=== PATIENT | female | born 1975 | race Caucasian/White ===

== ENCOUNTER 2018-08-07 16:07 | Emergency (ER) | payer OTHER, SELFPAY ==
[2018-08-07 16:31] VITALS: BP 98/73; PULSE 75; RESP 16; TEMP 36.7; O2SAT 100
--- NOTE | 2018-08-07 18:24 | W.ED.GENAD ---
Discharge Plan Disposition Patient Disposition: HOME Discharge Details Chief Complaint: AnimalBite Clinical Impression: Rabies, need for prophylactic vaccination against, Exposure to bat without known bite Primary Care Provider: Tati Dotson ED Provider: Fernie Khanna Home Meds and New Rx's Prescriptions: Continue multivitamin 1 EACH tablet 1 ea PO DAILY RF: 0 levonorgestrel [Mirena] 1 EACH intrauterine device 1 ea Intrauterine ONCE Qty: 1 RF: 0 triamcinolone acetonide 15 GM cream 15 gm Topical BID Qty: 1 RF: 12 fluticasone [Flonase Allergy Relief] 9.9 ML spray,suspension 2 spray NS DAILY Qty: 9.9 RF: 12 lorazepam 1 MG tablet 0.5 - 1 mg PO HS PRNQty: 30 RF: 3 levothyroxine [Synthroid] 125 MCG tablet 125 mcg PO DAILY Qty: 90 RF: 3 Discharge Instructions Instructions: Rabies Vaccine (ED) Additional Instructions: You need to have additional vaccination performed on 08/10/18, 08/14/18, and 08/21/18. Please set up with your primary care doctor or return to the ER. Please contact your primary care physician to arrange follow-up. Return to the ER for any worsening or new concerning symptoms. Referrals: Tati Dotson, WILLOW [Primary Care Provider] - Discharge Data Discharge Date/Time-TO BE ENTERED AT DEPARTURE: 08/07/18 20:21 Medical Decision Making 43-year-old female here with concern that there was a bat in her house while she was sleeping. Requesting rabies prophylaxis. Risk benefit of rabies prophylaxis was discussed with the patient. Patient provided informed consent to treat. HPI General Mode of arrival: ambulatory. Date/Time Provider Initiated Documentation: 08/07/18 18:09. Limitations to Documentation: no limitations. Information obtained by: patient and family. HPI Narrative: 43-year-old female presents with concern for exposure to rabies. Patient notes that she found a bat in her house. No known scratch or bite. Bat was in her living space. Requesting rabies vaccination. Related Data Home Medications Medication Instructions Recorded Confirmed levonorgestrel [Mirena] 1 ea INTRAUTERINE ONCE #1 implant 07/29/16 08/07/18 multivitamin 1 ea PO DAILY 07/29/16 08/07/18 triamcinolone acetonide 15 gm TOPICAL BID #1 script 09/18/16 08/07/18 fluticasone [Flonase Allergy 2 spray NS DAILY #9.9 ml 08/12/17 08/07/18 Relief] lorazepam 0.5 - 1 mg PO HS PRN #30 tab-cap 08/12/17 08/07/18 levothyroxine [Synthroid] 125 mcg PO DAILY #90 tab-cap 09/16/17 08/07/18 Previous Rx's Medication Instructions Recorded fluticasone [Flonase Allergy 2 spray NS DAILY #9.9 ml 08/12/17 Relief] levothyroxine [Synthroid] 125 mcg PO DAILY #90 tab-cap 09/16/17 Allergies Allergy/AdvReac Type Severity Reaction Status Date / Time No Known Allergies Allergy Unverified 08/07/18 16:36 General Stated Complaint: AnimalBite JEANETTE: 5 Review of Systems Integumentary/Breasts Reports as per HPI PFSH Family History Mother No problems noted. Father Alcohol abuse Hyperlipidemia Medical History Anemia Common migraine Depression History of Graves' disease Hyperlipidemia Lichen sclerosus Social History Smoking/Tobacco Use Status: Never Exam Const General: cooperative and no acute distress Orientation: alert and awake Course Vital Signs Temperature 36.7 C 08/07/18 16:31 Pulse 75 08/07/18 16:31 Respiratory Rate 16 08/07/18 16:31 Blood Pressure 98/73 L 08/07/18 16:31 Pulse Oximetry 100 08/07/18 16:31 Temperature 36.7 C 08/07/18 16:31 Temperature Source Skin 08/07/18 16:31 Pulse 75 08/07/18 16:31 Respiratory Rate 16 08/07/18 16:31 Respiratory Effort Non-Labored 08/07/18 16:44 Blood Pressure 98/73 L 08/07/18 16:31 Pulse Oximetry 100 08/07/18 16:31 Pain Level 1 08/07/18 16:31
--- NOTE | 2018-08-20 06:35 | ED.GENADUL_ITS ---
Discharge Plan Disposition Patient Disposition: HOME Discharge Details Chief Complaint: AnimalBite Clinical Impression: Rabies, need for prophylactic vaccination against, Exposure to bat without known bite Primary Care Provider: Tati Dotson ED Provider: Fernie Khanna Home Meds and New Rx's Prescriptions: Continue multivitamin 1 EACH tablet 1 ea PO DAILY RF: 0 levonorgestrel [Mirena] 1 EACH intrauterine device 1 ea Intrauterine ONCE Qty: 1 RF: 0 triamcinolone acetonide 15 GM cream 15 gm Topical BID Qty: 1 RF: 12 fluticasone [Flonase Allergy Relief] 9.9 ML spray,suspension 2 spray NS DAILY Qty: 9.9 RF: 12 lorazepam 1 MG tablet 0.5 - 1 mg PO HS PRNQty: 30 RF: 3 levothyroxine [Synthroid] 125 MCG tablet 125 mcg PO DAILY Qty: 90 RF: 3 Discharge Instructions Instructions: Rabies Vaccine (ED) Additional Instructions: You need to have additional vaccination performed on 08/10/18, 08/14/18, and 08/21. Please set up with your primary care doctor or return to the ER. Please contact your primary care physician to arrange follow-up. Return to the ER for any worsening or new concerning symptoms. Referrals: Tati Dotson, WILLOW [Primary Care Provider] - Discharge Data Discharge Date/Time-TO BE ENTERED AT DEPARTURE: 08/07/18 20:21 Medical Decision Making 43-year-old female here with concern that there was a bat in her house while she was sleeping. Requesting rabies prophylaxis. Risk benefit of rabies prophylaxis was discussed with the patient. Patient provided informed consent to treat. HPI General Mode of arrival: ambulatory . Date/Time Provider Initiated Documentation: 08/07/18 18:09 . Limitations to Documentation: no limitations . Information obtained by: patient and family . HPI Narrative: 43-year-old female presents with concern for exposure to rabies. Patient notes that she found a bat in her house. No known scratch or bite. Bat was in her living space. Requesting rabies vaccination. Related Data Home Medications Medication Instructions Recorded Confirmed levonorgestrel [Mirena] 1 ea INTRAUTERINE ONCE #1 implant 07/29/16 08/07/18 multivitamin 1 ea PO DAILY 07/29/16 08/07/18 triamcinolone acetonide 15 gm TOPICAL BID #1 script 09/18/16 08/07/18 fluticasone [Flonase Allergy 2 spray NS DAILY #9.9 ml 08/12/17 08/07/18 Relief] lorazepam 0.5 - 1 mg PO HS PRN #30 tab-cap 08/12/17 08/07/18 levothyroxine [Synthroid] 125 mcg PO DAILY #90 tab-cap 09/16/17 08/07/18 Previous Rx's Medication Instructions Recorded fluticasone [Flonase Allergy 2 spray NS DAILY #9.9 ml 08/12/17 Relief] levothyroxine [Synthroid] 125 mcg PO DAILY #90 tab-cap 09/16/17 Allergies Allergy/AdvReac Type Severity Reaction Status Date / Time No Known Allergies Allergy Unverified 08/07/18 16:36 General Stated Complaint: AnimalBite JEANETTE: 5 Review of Systems Integumentary/Breasts Reports as per HPI PFSH Family History Mother No problems noted. Father Alcohol abuse Hyperlipidemia Medical History Anemia Common migraine Depression History of Graves' disease Hyperlipidemia Lichen sclerosus Social History Smoking/Tobacco Use Status: Never Exam Const General: cooperative and no acute distress Orientation: alert and awake Course Vital Signs Temperature 36.7 C 08/07/18 16:31 Pulse 75 08/07/18 16:31 Respiratory Rate 16 08/07/18 16:31 Blood Pressure 98/73 L 08/07/18 16:31 Pulse Oximetry 100 08/07/18 16:31 Temperature 36.7 C 08/07/18 16:31 Temperature Source Skin 08/07/18 16:31 Pulse 75 08/07/18 16:31 Respiratory Rate 16 08/07/18 16:31 Respiratory Effort Non-Labored 08/07/18 16:44 Blood Pressure 98/73 L 08/07/18 16:31 Pulse Oximetry 100 08/07/18 16:31 Pain Level 1 08/07/18 16:31
== END 2018-08-07 20:21 | disposition home or self-care (01) ==
PROVIDERS: Emergency Provider Student in an Organized Health Care Education/Training Program; PCP Nurse Practitioner
DX: Z20.3 Contact with and (suspected) exposure to rabies (principal); Z29.14 Encounter for prophylactic rabies immune globulin; W53.89XA Other contact with other rodent, initial encounter
CPT/HCPCS: 90471; 99284; 90675; 99282

== ENCOUNTER 2018-08-21 13:46 | Emergency (ER) | payer OTHER, SELFPAY ==
[2018-08-21 13:52] VITALS: BP 149/98; PULSE 66; RESP 16; TEMP 36.7; O2SAT 97
--- NOTE | 2018-08-21 14:14 | W.ED.GENAD ---
Discharge Plan Disposition Patient Disposition: HOME Condition: Good Discharge Details Chief Complaint: Recheck Clinical Impression: Need for rabies vaccination Primary Care Provider: Tati Dotson ED Provider: Agustina Do Home Meds and New Rx's Prescriptions: Continue multivitamin 1 EACH tablet 1 ea PO DAILY RF: 0 levonorgestrel [Mirena] 1 EACH intrauterine device 1 ea Intrauterine ONCE Qty: 1 RF: 0 triamcinolone acetonide 15 GM cream 15 gm Topical BID Qty: 1 RF: 12 fluticasone [Flonase Allergy Relief] 9.9 ML spray,suspension 2 spray NS DAILY Qty: 9.9 RF: 12 lorazepam 1 MG tablet 0.5 - 1 mg PO HS PRNQty: 30 RF: 3 levothyroxine [Synthroid] 125 MCG tablet 125 mcg PO DAILY Qty: 90 RF: 3 Discharge Instructions Instructions: Rabies Vaccine (ED) Additional Instructions: If you develop any headache, fever, muscle spasms, confusion or adverse reaction to the injection, please seek care urgently once again. Otherwise follow-up with primary care Referrals: Tati Dotson, WILLOW [Primary Care Provider] - Medical Decision Making Patient is a 43-year-old female presenting today with chief concern of rabies prophylaxis. Patient was began 2 weeks ago on rabies prophylaxis after discussion of that. She was in [place] last week at which time she received days 3 and 7 vaccine. Presents today for last in the series on day #14. States he has been tolerating the vaccines well. No nausea, vomiting, rash, headache. Reports she is otherwise feeling well. States that she has some mild aching initially after the vaccines but otherwise no symptoms. Patient was unable to have this administered elsewhere so came to emergency department for her last series. We will administer the last vaccine. LMP 1 week ago, patient does not be placed. We discussed new/worsening symptoms when to seek care urgently once again. Advise follow-up with primary care as needed. All of her questions and concerns were addressed and she is in agreement with this plan. HPI General Mode of arrival: ambulatory. Date/Time Provider Initiated Documentation: 08/21/18 13:53. Limitations to Documentation: no limitations. Information obtained by: patient. History of Present Illness 43 year old F presents to the emergency department with the chief complaint of need for last rabies vaccine in series, Patient started experiencing this week(s) (2) Patient notes no other symptoms.; denies chest pain, cough, fever/chills, headaches, nausea/vomiting, rash and shortness of breath. Patient did receive the following treatments prior to arrival, other (has had initial vaccination at 0,3,7 days) Related Data Home Medications Medication Instructions Recorded Confirmed levonorgestrel [Mirena] 1 ea INTRAUTERINE ONCE #1 implant 07/29/16 08/07/18 multivitamin 1 ea PO DAILY 07/29/16 08/07/18 triamcinolone acetonide 15 gm TOPICAL BID #1 script 09/18/16 08/07/18 fluticasone [Flonase Allergy 2 spray NS DAILY #9.9 ml 08/12/17 08/07/18 Relief] lorazepam 0.5 - 1 mg PO HS PRN #30 tab-cap 08/12/17 08/07/18 levothyroxine [Synthroid] 125 mcg PO DAILY #90 tab-cap 09/16/17 08/07/18 Previous Rx's Medication Instructions Recorded fluticasone [Flonase Allergy 2 spray NS DAILY #9.9 ml 08/12/17 Relief] levothyroxine [Synthroid] 125 mcg PO DAILY #90 tab-cap 09/16/17 Allergies Allergy/AdvReac Type Severity Reaction Status Date / Time No Known Allergies Allergy Unverified 08/07/18 16:36 General Stated Complaint: Recheck JEANETTE: 5 Review of Systems Constitutional Reports as per HPI, Denies body ache(s), Denies chills, Denies fever(s), Denies headache(s) and Denies lethargy ENT Denies headache(s) Cardiovascular Denies chest pain and Denies dyspnea Respiratory Denies cough and Denies dyspnea Gastrointestinal Denies nausea and Denies vomiting Integumentary/Breasts Denies erythema and Denies rash Neurologic Denies headache(s) PFSH Family History Mother No problems noted. Father Alcohol abuse Hyperlipidemia Medical History Anemia Common migraine Depression History of Graves' disease Hyperlipidemia Lichen sclerosus Social History Smoking/Tobacco Use Status: Never Exam Const General: cooperative, healthy appearing, comfortable, no acute distress and well developed Nutritional Appearance: average body habitus and well nourished Orientation: alert and awake Eyes General: appearance normal, both eyes and all related structures Resp Effort & Inspection: normal respiratory effort and able to speak in complete sentences Auscultation: clear to auscultation bilaterally Cardio Rate: regular rate Rhythm: regular rhythm Heart Sounds: S1 normal and S2 normal Skin General skin exam: no rashes or lesions noted Trauma: no lacerations or abrasions Neuro General: alert and awake Cognition: normal cognition Gait: normal gait Psych Appearance: grossly normal and well kempt Mental Status: mental status grossly normal Speech and Movement: speech and movement normal Course Vital Signs Temperature 36.7 C 08/21/18 13:52 Pulse 66 08/21/18 13:52 Respiratory Rate 16 08/21/18 13:52 Blood Pressure 149/98 H 08/21/18 13:52 Pulse Oximetry 97 08/21/18 13:52 Temperature 36.7 C 08/21/18 13:52 Temperature Source Skin 08/21/18 13:52 Pulse 66 08/21/18 13:52 Respiratory Rate 16 08/21/18 13:52 Respiratory Effort 08/21/18 13:54 Blood Pressure 149/98 H 08/21/18 13:52 Blood Pressure Position Sitting 08/21/18 13:52 Pulse Oximetry 97 08/21/18 13:52 Oxygen Delivery Method Room Air 08/21/18 13:52 Oxygen Flow Rate 0 08/21/18 13:52
--- NOTE | 2018-08-21 14:20 | ED.GENADUL_ITS ---
Discharge Plan Disposition Patient Disposition: HOME Condition: Good Discharge Details Chief Complaint: Recheck Clinical Impression: Need for rabies vaccination Primary Care Provider: Tati Dotson ED Provider: Agustina Do Home Meds and New Rx's Prescriptions: Continue multivitamin 1 EACH tablet 1 ea PO DAILY RF: 0 levonorgestrel [Mirena] 1 EACH intrauterine device 1 ea Intrauterine ONCE Qty: 1 RF: 0 triamcinolone acetonide 15 GM cream 15 gm Topical BID Qty: 1 RF: 12 fluticasone [Flonase Allergy Relief] 9.9 ML spray,suspension 2 spray NS DAILY Qty: 9.9 RF: 12 lorazepam 1 MG tablet 0.5 - 1 mg PO HS PRNQty: 30 RF: 3 levothyroxine [Synthroid] 125 MCG tablet 125 mcg PO DAILY Qty: 90 RF: 3 Discharge Instructions Instructions: Rabies Vaccine (ED) Additional Instructions: If you develop any headache, fever, muscle spasms, confusion or adverse reaction to the injection, please seek care urgently once again. Otherwise follow-up with primary care Referrals: Tati Dotson, WILLOW [Primary Care Provider] - Medical Decision Making Patient is a 43-year-old female presenting today with chief concern of rabies prophylaxis. Patient was began 2 weeks ago on rabies prophylaxis after discussion of that. She was in [place] last week at which time she received days 3 and 7 vaccine. Presents today for last in the series on day #14. States he has been tolerating the vaccines well. No nausea, vomiting, rash, headache. Reports she is otherwise feeling well. States that she has some mild aching initially after the vaccines but otherwise no symptoms. Patient was unable to have this administered elsewhere so came to emergency department for her last series. We will administer the last vaccine. LMP 1 week ago, patient does not be placed. We discussed new/worsening symptoms when to seek care urgently once again. Advise follow-up with primary care as needed. All of her questions and concerns were addressed and she is in agreement with this plan. HPI General Mode of arrival: ambulatory . Date/Time Provider Initiated Documentation: 08/21/18 13:53 . Limitations to Documentation: no limitations . Information obtained by: patient . History of Present Illness 43 year old F presents to the emergency department with the chief complaint of need for last rabies vaccine in series, Patient started experiencing this week (s) (2) Patient notes no other symptoms.; denies chest pain, cough, fever/ chills, headaches, nausea/vomiting, rash and shortness of breath. Patient did receive the following treatments prior to arrival, other (has had initial vaccination at 0,3,7 days) Related Data Home Medications Medication Instructions Recorded Confirmed levonorgestrel [Mirena] 1 ea INTRAUTERINE ONCE #1 implant 07/29/16 08/07/18 multivitamin 1 ea PO DAILY 07/29/16 08/07/18 triamcinolone acetonide 15 gm TOPICAL BID #1 script 09/18/16 08/07/18 fluticasone [Flonase Allergy 2 spray NS DAILY #9.9 ml 08/12/17 08/07/18 Relief] lorazepam 0.5 - 1 mg PO HS PRN #30 tab-cap 08/12/17 08/07/18 levothyroxine [Synthroid] 125 mcg PO DAILY #90 tab-cap 09/16/17 08/07/18 Previous Rx's Medication Instructions Recorded fluticasone [Flonase Allergy 2 spray NS DAILY #9.9 ml 08/12/17 Relief] levothyroxine [Synthroid] 125 mcg PO DAILY #90 tab-cap 09/16/17 Allergies Allergy/AdvReac Type Severity Reaction Status Date / Time No Known Allergies Allergy Unverified 08/07/18 16:36 General Stated Complaint: Recheck JEANETTE: 5 Review of Systems Constitutional Reports as per HPI, Denies body ache(s), Denies chills, Denies fever(s), Denies headache(s) and Denies lethargy ENT Denies headache(s) Cardiovascular Denies chest pain and Denies dyspnea Respiratory Denies cough and Denies dyspnea Gastrointestinal Denies nausea and Denies vomiting Integumentary/Breasts Denies erythema and Denies rash Neurologic Denies headache(s) PFSH Family History Mother No problems noted. Father Alcohol abuse Hyperlipidemia Medical History Anemia Common migraine Depression History of Graves' disease Hyperlipidemia Lichen sclerosus Social History Smoking/Tobacco Use Status: Never Exam Const General: cooperative, healthy appearing, comfortable, no acute distress and well developed Nutritional Appearance: average body habitus and well nourished Orientation: alert and awake Eyes General: appearance normal, both eyes and all related structures Resp Effort & Inspection: normal respiratory effort and able to speak in complete sentences Auscultation: clear to auscultation bilaterally Cardio Rate: regular rate Rhythm: regular rhythm Heart Sounds: S1 normal and S2 normal Skin General skin exam: no rashes or lesions noted Trauma: no lacerations or abrasions Neuro General: alert and awake Cognition: normal cognition Gait: normal gait Psych Appearance: grossly normal and well kempt Mental Status: mental status grossly normal Speech and Movement: speech and movement normal Course Vital Signs Temperature 36.7 C 08/21/18 13:52 Pulse 66 08/21/18 13:52 Respiratory Rate 16 08/21/18 13:52 Blood Pressure 149/98 H 08/21/18 13:52 Pulse Oximetry 97 08/21/18 13:52 Temperature 36.7 C 08/21/18 13:52 Temperature Source Skin 08/21/18 13:52 Pulse 66 08/21/18 13:52 Respiratory Rate 16 08/21/18 13:52 Respiratory Effort 08/21/18 13:54 Blood Pressure 149/98 H 08/21/18 13:52 Blood Pressure Position Sitting 08/21/18 13:52 Pulse Oximetry 97 08/21/18 13:52 Oxygen Delivery Method Room Air 08/21/18 13:52 Oxygen Flow Rate 0 08/21/18 13:52
== END 2018-08-21 14:34 | disposition home or self-care (01) ==
PROVIDERS: Emergency Provider Physician Assistant; PCP Nurse Practitioner
DX: Z20.3 Contact with and (suspected) exposure to rabies (principal); W55.89XA Other contact with other mammals, initial encounter
CPT/HCPCS: 90471; 96372; 99284; 90675; 99282

== ENCOUNTER 2018-09-28 10:38 | Outpatient (CLI) | payer OTHER, SELFPAY ==
[2018-09-28 11:10] LABS: HCT 42.2 % (36.0-46.0); HGB 14.1 g/dL (12.0-15.5); Mean Corp. HGB Concentration 33.4 g/dL (32.0-36.0); Mean Corpuscular Hemoglobin 30.7 pg (27.0-33.0); Mean Corpuscular Volume 91.9 fL (80-95); Mean Platelet Volume 12.1 fL (8.0-11.0); Platelet Count 216 x1000/uL (130-400); RBC 4.59 m/cumm (4.00-5.20); RBC Distribution Width 12.3 % (11.7-14.6); White Blood Cell Count 5.11 k/cumm (4.4-10.8)
[2018-09-28 12:08] LABS: ALT 25 U/L (12-78); AST 20 U/L (15-37); Albumin 4.8 g/dL (3.4-5.0); Alkaline Phosphatase 48 U/L (46-116); Anion Gap 8.6 mmol/L (3-11); BUN 15 mg/dL (7-18); Bilirubin, Total 0.7 mg/dL (0.2-1.0); CO2 31.4 mmol/L (21.0-32.0); CREATININE 0.89 mg/dL (0.55-1.02); Chloride 98 mmol/L (98-107); Cholesterol 270 mg/dL (50-200); Glucose 88 mg/dL (70-100); HDL Cholesterol 122 mg/dL (40-60); LDL CHOLESTEROL 132 mg/dL (<100); Potassium 4.7 mmol/L (3.5-5.1); Sodium 138 mmol/L (136-145); Triglyceride 50 mg/dL (30-150)
[2018-09-30 17:13] LABS: Clam IgE <0.35 kU/L; Crab IgE <0.35 kU/L; Lobster IgE <0.35 kU/L; Oyster IgE <0.35 kU/L; Scallop IgE <0.35 kU/L; Shrimp IgE <0.35 kU/L
== END 2018-09-28 10:58 ==
PROVIDERS: PCP Nurse Practitioner; Visit Provider Nurse Practitioner
DX: E03.9 Hypothyroidism, unspecified (principal); E78.5 Hyperlipidemia, unspecified; Z91.018 Allergy to other foods
CPT/HCPCS: 36415; 80053; 80061; 83721; 85027; 84443; 86003

== ENCOUNTER 2018-10-20 00:31 | Outpatient (CLI) | payer OTHER, SELFPAY ==
--- NOTE | 2018-10-20 15:54 | DI.MAMMO_ITS ---
SYMPTOM/DIAGNOSIS: SCREENING, Z12.31 MAMMOGRAMS: Mammograms were interpreted according to the usual protocol including computer analysis with CAD system, tomosynthesis and C view imaging. Comparison is made with exams from 2016 and 2018. The breasts are composed of heterogenously dense fibroglandular tissue, breast density, Category C. No suspicious masses or suspicious microcalcifications are seen. There has been no significant change. IMPRESSION: Category 1C, negative mammogram. Yearly screening mammography is recommended. [facility] ASSESSMENT OF FINDINGS: Negative. Category 1. Patient will receive a letter notifying them of these results. Bi-RADS category C. The breasts are heterogeneously dense, which may obscure small masses.
== END 2018-10-20 00:51 ==
PROVIDERS: PCP Nurse Practitioner; Visit Provider Nurse Practitioner
DX: Z12.31 Encounter for screening mammogram for malignant neoplasm of breast (principal)
CPT/HCPCS: 77063; 77067

== ENCOUNTER 2019-10-16 09:41 | Outpatient (CLI) | payer OTHER, SELFPAY ==
[2019-10-16 11:23] LABS: ALT 23 U/L (14-59); AST 14 U/L (15-37); Albumin 4.3 g/dL (3.4-5.0); Alkaline Phosphatase 51 U/L (46-116); Anion Gap 6.1 mmol/L (3-11); Bilirubin, Total 0.6 mg/dL (0.2-1.0); CO2 29.9 mmol/L (21.0-32.0); CREATININE 0.82 mg/dL (0.55-1.02); Calcium 9.6 mg/dL (8.5-10.1); Calculated LDL 167 mg/dL; Chloride 104 mmol/L (98-107); Cholesterol 281 mg/dL (<200); Glucose 86 mg/dL (74-106); HDL Cholesterol 99 mg/dL (40-60); Sodium 140 mmol/L (136-145); TSH (W/Ref FT4) 2.14 uIU/mL (0.36-3.74); Total Protein 7.6 g/dL (6.4-8.2); Triglyceride 79 mg/dL (<150)
[2019-10-16 11:36] LABS: BUN 19 mg/dL (7-18)
== END 2019-10-16 10:01 ==
PROVIDERS: PCP Nurse Practitioner; Visit Provider Nurse Practitioner
DX: E03.9 Hypothyroidism, unspecified (principal); E78.5 Hyperlipidemia, unspecified
CPT/HCPCS: 36415; 80053; 80061; 84443

== ENCOUNTER 2020-11-13 03:26 | Outpatient (CLI) | payer OTHER, SELFPAY ==
[2020-11-13 09:07] LABS: ALT 28 U/L (14-59); AST 21 U/L (15-37); Albumin 4.1 g/dL (3.4-5.0); Alkaline Phosphatase 47 U/L (46-116); Anion Gap 8.5 mmol/L (3-11); BUN 18 mg/dL (7-18); Bilirubin, Total 0.5 mg/dL (0.2-1.0); CO2 28.5 mmol/L (21.0-32.0); CREATININE 0.8 mg/dL (0.55-1.02); Calcium 9.3 mg/dL (8.5-10.1); Calculated LDL 124 mg/dL (<100); Chloride 104 mmol/L (98-107); Cholesterol 240 mg/dL (<200); Glucose 83 mg/dL (74-106); HDL Cholesterol 104 mg/dL (40-60); Sodium 141 mmol/L (136-145); TSH (W/Ref FT4) 2.84 uIU/mL (0.36-3.74); Total Protein 7.1 g/dL (6.4-8.2); Triglyceride 64 mg/dL (<150)
== END 2020-11-13 03:27 | disposition home or self-care (01) ==
LOC: LBO 03:26
PROVIDERS: PCP Nurse Practitioner; Visit Provider Nurse Practitioner
DX: E03.9 Hypothyroidism, unspecified (principal); F41.9 Anxiety disorder, unspecified
CPT/HCPCS: 36415; 80053; 80061; 84443

== ENCOUNTER → 2021-05-21 01:55 | Outpatient (CLI) | payer OTHER, SELFPAY ==
--- NOTE | 2021-05-21 07:00 | DI.MAMMO_ITS ---
Exam(s) MAMMO SCREENING EXAM: MAMMO SCREENING CLINICAL HISTORY: screening,Z12.39. TECHNIQUE: Bilateral full field digital CC and MLO mammographic images were obtained with 3D tomosyn thesis and utilizing computer aided detection (CAD). COMPARISON: Prior mammograms dating back to 2016, the most recent being October 2018. FINDINGS: Fibroglandular tissue is moderately dense. There are no CAD designations. There are no new obvious spiculated masses nor malignant appearing microcalcification groups. There is no significant architectural distortion nor skin thickening-retraction. IMPRESSION: No radiographic evidence of malignancy. BI-RADS Category 1 - Negative Breast Density - Category C - Heterogeneously dense Breast density Category C or D implies that the patient has dense breast tissue. Dense breast tissue can make it harder to find cancer on a mammogram. Dense breast tissue is also associated with an incr eased risk of breast cancer. This information about the result of the mammogram report was provided to the patient to raise their awareness. Use this report when you speak with the patient about their risks for breast cancer, which includes their family history. At that time, you may recommend additional screening tests (Ultrasoun d or MRI) as these tests may add significant information. A negative radiographic report should not delay biopsy if a dominant or clinically suspicious mass is present. Up to ten percent of cancers are not identified on mammography. A negative report may reinforce clinical impression. Adenosis and dense breasts may obscure an underlying neoplasm. False positive reports average 6 to 10%. Patient will receive a letter notifying them of these results.
== END ==
PROVIDERS: PCP Nurse Practitioner; Visit Provider Nurse Practitioner
DX: Z12.31 Encounter for screening mammogram for malignant neoplasm of breast (principal)
CPT/HCPCS: 77063; 77067

== ENCOUNTER 2021-12-14 04:10 | Outpatient (CLI) | payer OTHER, SELFPAY ==
[2021-12-14 11:22] LABS: HCT 38.8 % (36.0-46.0); HGB 12.9 g/dL (11.2-15.7); MCH 30.1 pg (27.0-33.0); MCHC 33.2 % (32.0-36.0); MCV 90.4 fL (80-95); MPV 12.9 fL (8.0-11.0); Platelet Count 211 10^3/uL (130-400); RBC 4.29 10^6/uL (3.93-5.22); RDW 11.6 % (11.7-14.6); RDW-SD 38.1 fL; WBC 6.53 10^3/uL (4.4-10.8)
[2021-12-14 11:23] LABS: ESR 5 mm/hr (0-20)
[2021-12-14 12:31] LABS: ALT 31 U/L (14-59); AST 23 U/L (15-37); Albumin 4.4 g/dL (3.4-5.0); Alkaline Phosphatase 66 U/L (46-116); Anion Gap 8.4 mmol/L (3-11); BUN 16 mg/dL (7-18); Bilirubin, Total 0.4 mg/dL (0.2-1.0); CO2 28.6 mmol/L (21.0-32.0); CREATININE 0.8 mg/dL (0.55-1.02); Calculated LDL 155 mg/dL (<100); Chloride 101 mmol/L (98-107); Cholesterol 261 mg/dL (<200); Glucose 75 mg/dL (74-106); HDL Cholesterol 89 mg/dL (40-60); Potassium 4.9 mmol/L (3.5-5.1); Sodium 138 mmol/L (136-145); Total Protein 7.5 g/dL (6.4-8.2); Triglyceride 86 mg/dL (<150); Vitamin B12 290 pg/mL (193-986)
[2021-12-14 12:40] LABS: Calcium 9.8 mg/dL (8.5-10.1)
[2021-12-17 03:17] LABS: Vitamin D 25 Total 30.2 ng/mL (30-100)
== END 2021-12-14 04:11 | disposition home or self-care (01) ==
LOC: LBO 04:12
PROVIDERS: PCP Nurse Practitioner; Visit Provider Nurse Practitioner
DX: R53.81 Other malaise (principal); Z13.220 Encounter for screening for lipoid disorders
CPT/HCPCS: 36415; 80053; 80061; 82306; 85027; 85652; 82607; 84443

== ENCOUNTER → 2022-04-24 18:44 | Outpatient (CLI) | payer OTHER, SELFPAY ==
--- NOTE | 2022-04-24 | DI.RAD_ITS ---
Exam(s) XR CHEST 2V PA LATERAL EXAM: XR CHEST 2V PA LATERAL CLINICAL HISTORY: COUGH--R05.8 TECHNIQUE: 2D digital imaging was performed. COMPARISON: No exams were available for comparison FINDINGS: MEDIASTINUM: Normal. HEART: Normal. PULMONARY VASCULATURE: Normal. LUNGS: Clear. PLEURAL SPACE: No pleural effusion or pneumothorax. BONE:Unremarkable for age. IMPRESSION: No acute abnormality. DATA REPOSITORY: RADIATION DOSE DELIVERED:
== END ==
PROVIDERS: PCP Nurse Practitioner; Visit Provider Physician Assistant
DX: R05.3 Chronic cough (principal)
CPT/HCPCS: 71046

== ENCOUNTER → 2022-05-27 02:46 | Outpatient (CLI) | payer OTHER, SELFPAY ==
--- NOTE | 2022-05-27 07:30 | DI.MAMMO_ITS ---
Exam(s) MAMMO SCREENING EXAM: MAMMO SCREENING CLINICAL HISTORY: screening,z12.39 TECHNIQUE: Bilateral full field digital CC and MLO mammographic images were obtained with 3D tomosyn thesis and utilizing computer aided detection (CAD). COMPARISON: Available for comparison. FINDINGS: Masses/Architectural Distortion: None seen. Microcalcifications: No suspicious pleomorphic-type are seen. Skin Thickening/Nipple Retraction: None. IMPRESSION: 1. No significant interval change with no specific features of malignancy noted. 2. Unless there is more urgent need, screening mammography is recommended, as per [employer] guidelines. BI-RADS Category 1 - Negative Breast Density - Category C - Heterogeneously dense Breast density category C or D implies that the patient has dense breast tissue. Dense breast tissue is very common and is not abnormal but dense breast tissue can make it harder to find cancer on a ma mmogram. Also, dense breast tissue may increase their breast cancer risk. This information about the result of the mammogram report was provided to the patient to raise their awareness. Use this report when you speak with the patient about their risks for breast cancer, which includes their family hist ory. At that time, you may recommend for more screening tests (Ultrasound or MRI) as they might be us eful based on their risk. A negative radiographic report should not delay biopsy if a dominant or clinically suspicious mass is present. Up to ten percent of cancers are not identified on mammography. A negative report may reinforce clinical impression. Adenosis and dense breasts may obscure an underlying neoplasm. False positive reports average 6 to 10%. Patient will receive a letter notifying them of these results.
== END ==
PROVIDERS: PCP Nurse Practitioner; Visit Provider Nurse Practitioner
DX: Z12.31 Encounter for screening mammogram for malignant neoplasm of breast (principal); R92.8 Other abnormal and inconclusive findings on diagnostic imaging of breast
CPT/HCPCS: 77063; 77067

== ENCOUNTER 2022-11-06 12:55 | Outpatient (CLI) | payer BC, SELFPAY ==
[2022-11-06 10:25] LABS: Calculated LDL 162 mg/dL (<100); Cholesterol 280 mg/dL (<200); HDL Cholesterol 103 mg/dL (40-60); TSH (W/Ref FT4) 0.14 uIU/mL (0.36-3.74); Triglyceride 77 mg/dL (<150)
[2022-11-06 12:35] LABS: FREE T4 1.18 ng/dL (0.76-1.46)
== END 2022-11-06 12:56 | disposition home or self-care (01) ==
LOC: LBO 12:57
PROVIDERS: PCP Nurse Practitioner; Visit Provider Nurse Practitioner
DX: E03.9 Hypothyroidism, unspecified (principal); E78.5 Hyperlipidemia, unspecified
CPT/HCPCS: 36415; 80061; 84439; 84443

== ENCOUNTER 2023-12-09 03:44 | Outpatient (CLI) | payer BC, SELFPAY ==
[2023-12-09 11:13] LABS: Calculated LDL 124 mg/dL (<100); Cholesterol 223 mg/dL (<200); HDL Cholesterol 89 mg/dL (40-60); TSH (W/Ref FT4) 0.01 uIU/mL (0.36-3.74); Triglyceride 53 mg/dL (<150)
[2023-12-09 11:32] LABS: FREE T4 1.07 ng/dL (0.76-1.46)
== END 2023-12-09 03:45 | disposition home or self-care (01) ==
LOC: LOS 03:44
PROVIDERS: PCP Nurse Practitioner; Visit Provider Nurse Practitioner
DX: E03.9 Hypothyroidism, unspecified (principal); E78.5 Hyperlipidemia, unspecified
CPT/HCPCS: 36415; 80061; 84439; 84443

== ENCOUNTER 2024-04-30 01:56 | Outpatient (CLI) | payer BC, SELFPAY ==
[2024-04-30 16:15] LABS: TSH (W/Ref FT4) 0.13 uIU/mL (0.36-3.74)
[2024-04-30 16:33] LABS: FREE T4 1.09 ng/dL (0.76-1.46)
== END 2024-04-30 01:57 | disposition home or self-care (01) ==
LOC: LBO 01:56
PROVIDERS: PCP Nurse Practitioner; Visit Provider Nurse Practitioner
DX: E03.9 Hypothyroidism, unspecified (principal)
CPT/HCPCS: 36415; 84439; 84443

== ENCOUNTER 2024-12-29 00:47 | Outpatient (CLI) | payer OTHER, SELFPAY ==
--- NOTE | 2024-12-29 08:00 | DI.MAMMO_ITS ---
Exam(s) MAMMO SCREENING EXAM: MAMMO SCREENING CLINICAL HISTORY: screening,Z12.39 TECHNIQUE: Mammograms were interpreted according to the usual protocol including computer analysis w [employer] CAD system, tomosynthesis and C-view imaging. COMPARISON: 2015 through 2021 FINDINGS: The breasts are composed of scattered fibroglandular densities, Breast Density category B. No suspicious masses or suspicious microcalcifications are seen. No skin thickening or abnormal axillary lymph nodes are seen. There has been no significant change from prior exams. IMPRESSION: BI-RADS Category 1, Negative mammogram Yearly screening mammography is recommended. Breast Density - Category B, scattered fibroglandular densities. A negative radiographic report should not delay biopsy if a dominant or clinically suspicious mass is present. Up to ten percent of cancers are not identified on mammography. A negative report may reinforce clinical impression. Adenosis and dense breasts may obscure an underlying neoplasm. False positive reports average 6 to 10%. Patient will receive a letter notifying them of these results.
== END 2024-12-29 01:07 ==
PROVIDERS: PCP Nurse Practitioner; Visit Provider Nurse Practitioner
DX: Z12.31 Encounter for screening mammogram for malignant neoplasm of breast (principal); R92.323 Mammographic fibroglandular density, bilateral breasts
CPT/HCPCS: 77063; 77067